=== PATIENT | female | born 1990 | race Caucasian/White ===

== ENCOUNTER 2017-11-05 12:56 | Emergency (ER) | payer OTHER ==
[2017-11-05 13:14] VITALS: BMI 18.8
--- NOTE | 2017-11-05 13:37 | OBHP ---
Datetime: 11/05/2017 13:25 IP Chief Complaint Other: For Rhogam injection IP Admit Plan: Observation/Evaluation Admit Comment, IP Provider: 26 y.o. , LMP unsure, WILEY 01/11/18, EGA 30w 3d, revised by nabila stephens t approx 13 weeks - referred by priv Ob for Rhogam injection. (+) AFM; denies LOF, VB, Ctx. care: Dr. Call - no issues to date. 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 x 2 1/2 years. Works in [employer]. Lives with an d child Fam Hx; MOther alive 44 y.o. Father alive 49 y.o. - both, no med issues. no known fam h/o cancer P.E.: as above. Thin, n NAD. Awake, alert, oriented to time, person and place. Pleasant and coope rative Assessment: 26 y.o. P1, 30w 3d, Rh negative for Rhogam . Category 1 tracing. One "deceleration" n oted in the first 5 minutes of patient being placed on the EFM. Low heartbeat was maternal. No recurr ence. Clinically stable. Plan: 1) T_S to blood bank. 2) Administer Rhogam 3)Keep next scheduled appointment with Dr. Call - as per Dr. Call Pelvic Type - PN: Adequate Extremities - PN: Normal Abdomen - PN: Normal Back - PN: Normal Breast - PN: Normal Lungs - PN: Normal Heart - PN: Normal Thyroid - PN: Normal Neurologic - PN: Normal HEENT - PN: Normal General - PN: Normal FHR - Baseline A Provider: 145 Contraction Comments Provider: none Comments, ACOG Physical Exam: All other systems reviwed and are negative. Gestation - Est Wks by US: 30w 3d EGA AdmitDate IP: 30.6 Vital Signs Provider: Reviewed IP Chief Complaint: Other NICHD Variability Prov Fetus A: Moderate 6-25bpm NICHD Accel Fetus A IP Provider: 10X10 FHR Category Provider Fetus A: Category I NICHD Decel Fetus A IP Provider: None Dilatation, Provider: deferred Genitourinary Exam: Normal DTRs - PN: Normal
[2017-11-05 18:51] VITALS: BP 105/61; PULSE 93
== END 2017-11-05 14:49 | disposition home or self-care (01) ==
LOC: C.EROB 12:56
DX: Z23 Encounter for immunization (principal); Z3A.30 30 weeks gestation of pregnancy
CPT/HCPCS: 86850; 86900; 99283; J2792